=== PATIENT | male | born 2000 | race African-American/Black ===

== ENCOUNTER 2022-09-17 19:50 | Emergency (ER) | payer OTHER ==
[~2022-09-17] VITALS: Ht 193 cm; Wt 113.6 kg
[2022-09-17 20:23] VITALS: TEMP 97.7
[2022-09-17] MEDS ORDERED: IBUP-1554 PO (22:50)
[2022-09-17] MEDS ORDERED: ACET-2080 PO (22:50)
[2022-09-17 23:25] VITALS: BP 124/72; PULSE 85; RESP 16
== END 2022-09-17 23:40 | disposition home or self-care (01) ==
LOC: EDBD 19:52 → EMS 19:52
DX: S76.112A Strain of left quadriceps muscle, fascia and tendon, initial encounter (principal); X58.XXXA Exposure to other specified factors, initial encounter; Y93.67 Activity, basketball; Y92.89 Other specified places as the place of occurrence of the external cause; Y99.8 Other external cause status
CPT/HCPCS: 29505; 29530; 99283